=== PATIENT | female | born 1940 | race Two or more races ===

== ENCOUNTER 2022-10-20 15:20 | Inpatient (IN) | payer OTHER ==
[~2022-10-20] VITALS: Ht 157.5 cm; Wt 68.6 kg
[2022-10-20 16:20] LABS: Basophils # (auto) 0 10 ^3/uL (0-0.2); Basophils % (auto) 0.9 % (0.0-2.0); Eosinophils # (auto) 0.2 10 ^3/uL (0-0.8); Eosinophils % (auto) 3.9 % (0.0-7.0); Hematocrit 24.4 % (36.0-46.0); Hemoglobin 8.3 g/dL (12.2-16.2); Lymphocytes # (auto) 0.9 10 ^3/uL (0.4-5.4); Lymphocytes % (auto) 18.3 % (10.0-50.0); Mean Corpuscular Hemoglobin 34.8 pg (28.0-32.0); Mean Corpuscular Volume 102.3 fL (80.0-100.0); Monocytes # (auto) 0.5 10 ^3/uL (0-1.3); Monocytes % (auto) 9.1 % (0.0-12.0); Neutrophils # (auto) 3.4 10 ^3/uL (1.6-8.6); Neutrophils % (auto) 67.8 % (37.0-80.0); Nucleated Red Blood Cells % 0.1 %; Red Blood Cells 2.39 10^6/uL (4.0-5.20); Red Cell Distribution Width 18.2 % (11.8-14.3)
[2022-10-20 16:37] LABS: Calcium 8.9 mg/dL (8.5-10.1); Magnesium 2.5 mg/dL (1.6-2.6)
[2022-10-20 16:38] LABS: Acetaminophen < 2.0 ug/mL (10-30); Salicylate < 1.7 mg/dL (2.8-20.0)
[2022-10-20 16:41] LABS: BUN/Creatinine Ratio 4.3 (10.0-20.0); Bilirubin, Total 0.9 mg/dL (0.2-1.0); Total Protein 6.3 g/dL (6.4-8.2)
[2022-10-20 16:43] LABS: Blood Alcohol < 3.0 mg/dL (0-5); Lipase 196 U/L (73-393)
[2022-10-20 16:47] LABS: INR 1.15 (0.9-1.15); Partial Thromboplastin Time 29.4 sec (24.6-33.4)
[2022-10-20] MEDS ORDERED: levoFLOXacin 750MG 150 ML IV ONE (18:15)
[2022-10-20] MEDS ORDERED: DOCUSATE SOD 100 MG CAP PO PRN (21:30)
[2022-10-20] MEDS ORDERED: ACETAMINOPHEN 325 MG TAB PO PRN (21:30)
[2022-10-20] MEDS ORDERED: ALBUMIN 25% 100 ML IV ONE (21:30)
[2022-10-20] MEDS ORDERED: ONDANSETRON HCL 4 MG/2 ML VIAL IV PRN (21:30)
[2022-10-20] MEDS ORDERED: HYDROcodone-ACET 5/325MG TAB PO PRN (21:30)
[2022-10-20] MEDS ORDERED: POTASSIUM CHL 20 Meq TABLET PO ONE (21:45)
[2022-10-20] MEDS: SODIUM CHLOR 0.9% PF (SALINE LOCK) 10ML VIAL/SYR IV SCH (22:24)
[2022-10-20] MEDS ORDERED: NITROGLYCERIN 0.4 MG SL TAB SL PRN (23:15)
[2022-10-20] MEDS ORDERED: MORPHINE SULFATE INJ 2 MG/ml SYRG IV PRN (23:15)
[2022-10-20] MEDS: FAMOTIDINE (10MG/ML) 2ML VL IV SCH (23:30)
[2022-10-21] VITALS (8 sets, daily range): BP systolic 99–133; BP diastolic 28–58
[2022-10-21] MEDS ORDERED: LACTULOSE 20Gm/30ML SOLN PO ONE (02:15)
[2022-10-21] MEDS: SODIUM CHLOR 0.9% PF (SALINE LOCK) 10ML VIAL/SYR IV SCH ×3 (06:03→21:34)
[2022-10-21] MEDS: LACTULOSE 20Gm/30ML SOLN PO SCH ×5 (06:03→22:00)
[2022-10-21 06:42] LABS: Basophils # (auto) 0 10 ^3/uL (0-0.2); Basophils % (auto) 0.5 % (0.0-2.0); Eosinophils # (auto) 0.2 10 ^3/uL (0-0.8); Mean Corpuscular Hgb Conc. 34.1 g/dL (32.0-36.0); Monocytes # (auto) 0.6 10 ^3/uL (0-1.3)
[2022-10-21 06:46] LABS: Eosinophils % (auto) 3.1 % (0.0-7.0); Hematocrit 25.8 % (36.0-46.0); Hemoglobin 8.8 g/dL (12.2-16.2); Lymphocytes # (auto) 0.7 10 ^3/uL (0.4-5.4); Lymphocytes % (auto) 13.5 % (10.0-50.0); Mean Corpuscular Hemoglobin 35.1 pg (28.0-32.0); Mean Corpuscular Volume 102.9 fL (80.0-100.0); Monocytes % (auto) 12.3 % (0.0-12.0); Neutrophils # (auto) 3.7 10 ^3/uL (1.6-8.6); Neutrophils % (auto) 70.6 % (37.0-80.0); Nucleated Red Blood Cells % 0.3 %; Red Blood Cells 2.51 10^6/uL (4.0-5.20); Red Cell Distribution Width 18.4 % (11.8-14.3); White Blood Cell 5.2 10^3/uL (4.4-10.8)
[2022-10-21 07:25] LABS: Albumin 2.3 g/dL (3.4-5.0); Calcium 9.4 mg/dL (8.5-10.1); Potassium 4.5 mmol/L (3.5-5.1)
[2022-10-21 07:28] LABS: BUN/Creatinine Ratio 5.3 (10.0-20.0); Bilirubin, Total 1.1 mg/dL (0.2-1.0); Total Protein 6.6 g/dL (6.4-8.2)
[2022-10-21] MEDS: FAMOTIDINE (10MG/ML) 2ML VL IV SCH ×2 (09:52→21:34)
[2022-10-22] MEDS: LACTULOSE 20Gm/30ML SOLN PO SCH ×3 (02:00→10:00)
[2022-10-22 05:00] VITALS: BP 118/23
[2022-10-22] MEDS: SODIUM CHLOR 0.9% PF (SALINE LOCK) 10ML VIAL/SYR IV SCH (05:58)
[2022-10-22 07:07] LABS: BUN/Creatinine Ratio 5.9 (10.0-20.0); Calcium 10.4 mg/dL (8.5-10.1); Potassium 4.5 mmol/L (3.5-5.1)
[2022-10-22 08:00] VITALS: BP 123/50
[2022-10-22] MEDS: FAMOTIDINE (10MG/ML) 2ML VL IV SCH (10:35)
[2022-10-22 11:04] VITALS: BP 123/50
[2022-10-22] MEDS ORDERED: levoFLOXacin 250MG 50 ML IV SCH (22:00)
== END 2022-10-22 11:58 | disposition home or self-care (01) | DRG 314 ==
LOC: ER 15:20 → EDBD 15:20 → TELE 23:04 → TELE-WESTW 10-21 03:04
PROVIDERS: ADMIT Nurse Practitioner Family; ATTEND Family Medicine
DX: I95.9 Hypotension, unspecified (principal); G93.41 Metabolic encephalopathy; N18.6 End stage renal disease; I12.0 Hypertensive chronic kidney disease with stage 5 chronic kidney disease or end stage renal disease; E87.1 Hypo-osmolality and hyponatremia; E87.20 Acidosis, unspecified; N25.81 Secondary hyperparathyroidism of renal origin; K74.60 Unspecified cirrhosis of liver; E87.8 Other disorders of electrolyte and fluid balance, not elsewhere classified; D63.1 Anemia in chronic kidney disease; E83.39 Other disorders of phosphorus metabolism; Z99.2 Dependence on renal dialysis; Z88.0 Allergy status to penicillin; Z88.1 Allergy status to other antibiotic agents
CPT/HCPCS: 36415; 70450; 71045; 80048; 80053; 80320; 80329; 82140; 82962; 83605; 83690; 83735; 83880; 84484; 85025; 85610; 85730; 86850; 86900; 86901; 87040; 93005; 96365; 96366; 96367; G0378; J1956; J2405; J3490; P9047